=== PATIENT | female | born 1945 | race Caucasian/White ===

== ENCOUNTER 2020-06-14 14:15 | Emergency (ER) | payer MEDICARE, SELFPAY ==
--- NOTE | ~2020-06-14 | XR_ITS ---
EXAMINATION: XR shoulder RT min 2V, XR humerus RT DATE: 06/14/2020 16:55 INDICATION: Right shoulder pain post fall TECHNIQUE: 1. AP internally and externally rotated, AP oblique externally rotated and transscapular Y views of t he right shoulder were obtained. 2. Internal and external rotated views of the right humerus were obtained. COMPARISON: None FINDINGS: Comminuted fractures of the proximal right humerus. There is approximately 45 degree varus angulation at a transverse fracture at the surgical neck as well as 1.5 cm proximal migration of the metaphysea l fragment relative to the humeral head. There are additional mildly displaced fracture planes involv ing the articular surface of the humeral head as well as of the greater tuberosity. The humeral head fragments remain normally centered over the glenoid but with widening of the joint space consistent w ith the presence of a large glenoid and humeral joint effusion. The fracture plane at the articular c ortex isn't sufficiently profiled to assess for degree of fracture gap or incongruity. Normal alignme nt with mild to moderate osteoarthritis at the right acromioclavicular joint. No fracture of the righ t scapula, clavicle or more distal right humerus. Normal alignment and joint space at the right elbow . Visualized portions of the lungs are clear. Air-fluid level within a moderate to large hiatal herni a. IMPRESSION: 1. Comminuted intra-articular two-part fracture of the proximal right humerus with large glenohumeral joint effusion. 2. Moderate to large hiatal hernia. Reviewed, dictated and finalized at location A. WRAPPER IMPRESSION: 1. Comminuted intra-articular two-part fracture of the proximal right humerus w ith large glenohumeral joint effusion. 2. Moderate to large hiatal hernia.
[2020-06-14 15:56] VITALS: BP 147/95; PULSE 98; RESP 18; TEMP 36.4; O2SAT 97
[2020-06-14] MEDS: HYDROcodone/acetaminophen (*CRX) 5-325 MG TABLET 1 TAB PO (18:03)
--- NOTE | 2020-06-14 18:04 | ED.GENADULT ---
HPI - General Adult General Chief complaint: Extremity Injury, Upper <Kristopher Valenzuela PA-C - Last Filed: 06/14/20 18:10> Stated complaint: Fall, Right Arm pain <Kristopher Valenzuela PA-C - Last Filed: 06/14/20 18:10> Time Seen by Provider: 06/14/20 16:49 <Kristopher Valenzuela PA-C - Last Filed: 06/14/20 18:10> Source: patient <Kristopher Valenzuela PA-C - Last Filed: 06/14/20 18:10> Mode of arrival: ambulatory <Kristopher Valenzuela PA-C - Last Filed: 06/14/20 18:10> Limitations: no limitations <Kristopher Valenzuela PA-C - Last Filed: 06/14/20 18:10> History of Present Illness HPI narrative: Patient 75-year-old female who presents to emergency department with right shoulder injury patient was looking behind her when she lost her balance and fell onto the right shoulder is since had moderate aching pain at the shoulder joint worse with activity and movement patient denies head injury syncope loss of consciousness patient denies other injuries or concerns presents with her who she lives at home with and is resting comfortably on arrival in the room but does experience pain with any activity or movement patient has not taken anything for pain patient does not have an existing orthopedic surgeon who she follows with <Kristopher Valenzuela PA-C - Last Filed: 06/14/20 18:10> Related Data Allergies/adverse reactions: Allergies Allergy/AdvReac Type Severity Reaction Status Date / Time No Known Allergies Allergy Verified 06/14/20 16:57 <Kristopher Valenzuela PA-C - Last Filed: 06/14/20 18:10> Review of Systems Review of Systems: All systems reviewed & are unremarkable except as noted in HPI and below <Kristopher Valenzuela PA-C - Last Filed: 06/14/20 18:10> [facility] Surgical History Surgical History: Surgical History (Updated 06/14/20 @ 18:05 by Kristopher Valenzuela PA-C) History of orthopedic surgery <Kristopher Valenzuela PA-C - Last Filed: 06/14/20 18:10> Social History Social History: Social History (Updated 06/14/20 @ 18:06 by Kristopher Valenzuela PA-C) Smoking status: Never smoker <Kristopher Valenzuela PA-C - Last Filed: 06/14/20 18:10> Exam Narrative: Exam Narrative: GENERAL: Well-appearing, well-nourished, and in no acute distress. HEAD: Normocephalic, atraumatic. EYES: PERRLA and EOMI. ENT: Nares clear, no rhinorrhea or epistaxis. Mucous membranes moist. NECK: Supple. No adenopathy or masses. CHEST: Clear to auscultation. No respiratory distress. No wheezes rales or rhonchi HEART: Regular rate and rhythm. No murmur heard. Normal peripheral pulses. ABDOMEN: Soft, nontender, nondistended EXTREMITIES: Bruising swelling and tenderness of the right shoulder joint remainder of extremity nontender. No cervical spine tenderness to palpation SKIN: Warm, dry, no rash. NEURO: No focal deficits. Alert and oriented x3. Neurovascularly intact. Capillary refill less than 2 seconds PSYCH: Normal mood and affect. <OBDULIA Hernandez Last Filed: 06/14/20 18:10> Course Course Emergency Course: Discussed case with orthopedic surgery patient will follow with orthopedics in clinic placed in shoulder immobilizer will be discharged home with her patient and family feel comfortable with this plan. <OBDULIA Hernandez Last Filed: 06/14/20 18:10> Consultations Consultation #1: Discussed case with orthopedic surgery Dr. Calixto who will follow patient in clinic would like her to be placed in shoulder immobilizer <OBDULIA Hernandez Last Filed: 06/14/20 18:10> Date: 06/14/20 <OBDULIA Hernandez Last Filed: 06/14/20 18:10> Time: 18:07 <OBDULIA Hernandez Last Filed: 06/14/20 18:10> Vital Signs Vital signs: Vital Signs Temperature 97.5 F L 06/14/20 15:56 Pulse Rate 98 06/14/20 15:56 Respiratory Rate 18 06/14/20 15:56 Blood Pressure 147/95 H 06/14/20 15:56 Pulse Oximetry 97 06/14/20 15:56 Temperature 97.5 F L
== END 2020-06-14 19:05 | disposition home or self-care (01) ==
PROVIDERS: Emergency Provider General Practice
DX: S42.221A 2-part displaced fracture of surgical neck of right humerus, initial encounter for closed fracture (principal); K44.9 Diaphragmatic hernia without obstruction or gangrene; W18.39XA Other fall on same level, initial encounter
CPT/HCPCS: 73030; 73060; 99284; A9270

== ENCOUNTER 2024-07-04 14:32 | Emergency (ER) | payer MEDICARE, SELFPAY ==
[2024-07-04 14:55] VITALS: BP 126/72; PULSE 97; RESP 18; TEMP 36.3; O2SAT 98
--- OUTSIDE RECORDS SUMMARY | 2024-07-04 14:56 | XMS_ITS | Patient Health Record ---
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 [phone] ALLERGIES Allergen (clinical drug ingredient) Drug/Non Drug Allergy documented on EMR Reaction Allergy Type Onset Date Status [place] nausea Drug Allergy Active REASON FOR REFERRAL No Information MEDICATIONS Medication SIG (Take, Route, Frequency, Duration) Notes Start Date End Date Status Magnesium Active Sertraline HCl Activ e Fish Oil Active Pantoprazole Sodium Active Loperamide HCl Activ e Iron Active Glucosamine Chondr 1500 Complx Active Multivitamin Active Baby Aspirin Active Folic Acid Active buPROPion HCl ER (XL) 300 MG Oral for 90 Active Vitamin B 12 Active Levothyroxine Sodium 50 MCG Oral for 90 Active Vitamin D Active Rosuvastatin Calcium 10 MG Oral for 90 Active IMMUNIZATIONS Vaccine Route Administration Date Status Comme nts pneumoccocal Unknown 02/17/2015 Administered Influenza Unknown 03/15/2020 Administered Influenza Unknown 07/01/2021 Administered pneumoccocal Unknown 07/01/2021 Administered Influenza Unknown 09/17/2016 Refused pneumoccocal Unknown 06/15/2020 Refused SOCIAL HISTORY Tobacco Use: Social History Observation Description Date Details (start date - stop date) Never Smoker NA - NA Sex Assigned At : Social History Observation Description Sex Assigned At Unknown Tobacco Use: Question Answer Notes Patient is a: nonsmoker Alcohol screening: Question Answer Notes Did you have a drink containing alcohol in the p ast year? No Points 0 Interpretation Negative PROBLEMS Problem Type ICD Code Onset Dates Problem Status W/U Status Risk SNOMED Code Notes Problem Encounter for follow-up examination after completed treatment for conditions other than malignant neoplasm (Z09) Active confirmed History and physical examination, follow-up (906869096) Problem 4-part fracture of surgical neck of right humerus, initial encounter for closed fracture (S42.241A) Active confirmed 24428733 Problem Other displaced fracture of upper end of right humerus, initial encounter for closed fracture (S42.291A) Active confirmed 17917608 Problem Other fall on same level, initial encounter (W18.39XA) Active confirmed 42924685 Problem Unspecified fall, initial encounter (W19.XXXA) Active confirmed 7303390 Problem Activity, walking an animal (Y93.K1) Active confirmed 306730442 Problem Aftercare following joint replacement surgery (Z47.1) Active confirmed History of musculoskeletal operation (695063026) Problem 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) Active confirmed 461746799 Problem 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) Active confirmed Osteoarthritis of knee (176696720) Problem 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) Active confirmed Artificial k nee joint present (697270860440) Problem Encounter for removal of ed (Z48.02) Active confirmed [id number] PLAN OF TREATMENT No Information Insurance Providers Payer Name Payer Address Payer Phone Subscriber Number Group Number Insured Name Patient Relationship to Insured Coverage Start Date Coverage End Date [facility] Medicare Advantage HMO [address] [address] [place] [address] [id number] Steffany Car Self - patient is the insured MEDICAL (GENERAL) HISTORY Medical History History ICD Code thyroid disease depression hyperlipidemia Acid reflux HTN Bleeding problems Surgical History Surgery Date(Month/Year) gallbladder left knee replacement ([facility]) 03/18/16 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
--- OUTSIDE RECORDS SUMMARY | 2024-07-04 14:59 | XMS_ITS | Clinical Summary ---
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 Active buPROPion XL 24 hour (WELLBUTRIN-XL) 300 mg Oral tablet Take 300 mg by mouth daily leaf conditioner. Active MULTIVITAMIN ORAL Take by mouth daily. Active aspirin (ZOIE) 81 mg Oral Tab Take by mouth daily. Active ERGOCALCIFEROL, VITAMIN D2, (VITAMIN D ORAL) Take by mouth daily. Active FOLIC ACID ORAL Take by mouth daily. Active MAGNESIUM ORAL Take by mouth daily. Active LEVOTHYROXINE SODIUM (LEVOTHYROXINE ORAL) Take by mouth. 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 Gender Identity Not on file Sexual Orientation Not on file Last Filed Vital Signs Vital Sign Reading Time Taken Comments Blood Pressure 108/60 03/06/2017 7:41 AM CDT Pulse 73 03/06/2017 7:41 AM CDT Temperature 36.6 C (97.8 F) 03/06/2017 7:26 AM CDT Respiratory Rate 18 03/06/2017 7:41 AM CDT Oxygen Saturation 96% 03/06/2017 7:41 AM CDT Inhaled Oxygen Concentration - - Weight 70.3 kg (155 lb) 03/06/2017 6:40 AM CDT Height 149.9 cm (4' 11 ) 03/06/2017 6:40 AM CDT Body Mass Index 31.31 03/06/2017 6:40 AM CDT Plan of Treatment Health Maintenance Due Date Last Done Comments DTAP/TDAP/TD VACCINES (1 - Tdap) 1962 PNEUMOCOCCAL VACCINE 65+ YEA RS (1 of 1 - PCV) 1993 ZOSTER VACCINE (1 of 2) 1993 OSTEOPOROSIS SCREENING 2008 RSV VACCINE (60+ or ) (1 - 1-dose 75+ series) 2018 COLORECTAL SCREENING 03/06/2022 03/06/2017, 11/24/2011, 11/24/2011, Additional history exists INFLUENZA VACCINE (#1) 2023 Procedures Procedure Name Priority Date/Time Associated Diagnosis Comments ENDOSCOPY, COLON, SCREENING Routine 11/24/2011 from Last 3 Months or Most Recently Relevant to Health Maintenance Results * ENDOSCOPY, COLON, SCREENING (11/24/2011) Glynn Phillip MD GI PROCEDURE ORDERABLES Sharri montero Result [facility] from Last 3 Months or Most Recently Relevant to Health Maintenance Insurance MEDICARE PART A HOSPITAL ONLY [employer] HMO MCR [id number] [place] [id number] Advance Directives For more information, please contact: [phone] * Full Code (Latest Code Status on File) Date Activated Date Inactivated Comments 03/06/2017 6:42 AM 03/06/2017 10:27 AM Care Teams Boatbuilder Supervisor Relationship Specialty Start Date End Date Lacey Mcneil MD [address] [place] [address] PCP - General Internal Medicine 01/27/17
[2024-07-04] MEDS: ONDANSETRON HCL ODT 4 MG TABLET SUBLINGUAL (15:35)
--- NOTE | 2024-07-04 15:41 | ED.NAVMDI ---
HPI - Nausea/Vomiting/Diarrhea General Chief complaint: Nausea/Vomiting/Diarrhea Stated complaint: flu symptoms Time Seen by Provider: 07/04/24 15:41 Source: patient Mode of arrival: ambulatory Limitations: no limitations History of Present Illness HPI Narrative: 79-year-old female presents with complaint of nausea vomiting diarrhea, fatigue, body aches starting this morning. Has not taken any mefg-emz-xbutaci Imodium to treat diarrhea. Patient has swelled her pain and. Is walking around with a towel around her covering her but due to swell appearance. Has diarrhea down her legs and on her shoes. Patient is afebrile. Alert and oriented. Patient is here with her son. All systems reviewed and negative except as noted above. Related Data Allergies Allergy/AdvReac Type Severity Reaction Status Date / Time No Known Allergies Allergy Verified 07/04/24 15:21 Review of Systems Review of Systems: CONSTITUTIONAL: Denies fever, chills, or sweats. EYES: Denies visual changes, redness, or discharge. ENT: Denies rhinorrhea, congestion, sore throat, or otalgia. CARDIOVASCULAR: Denies chest pain, palpitations, or edema. RESPIRATORY: Denies cough or dyspnea. GASTROINTESTINAL: Denies abdominal pain . Reports nausea, vomiting, or diarrhea. GENITOURINARY: Denies dysuria or hematuria. SKIN: Denies rash or itching. MUSCULOSKELETAL: Denies back pain, joint pain, or myalgia. NEUROLOGIC: Denies headache, numbness, or weakness. PSYCHIATRIC: Denies anxiety or depression. All other systems reviewed are negative, except as documented in HPI. [facility] Surgical History Surgical History (Updated 06/14/20 @ 18:05 by Kristopher Valenzuela, PASandraC) History of orthopedic surgery Social History Social History (Updated 06/14/20 @ 18:06 by Kristopher Valenzuela, PA-C) Smoking status: Never smoker Comments At time of signature, agree with nursing past medical, surgical, social and family history. There is no relevant family history pertinent to the presenting complaint. Exam Narrative: GENERAL: This is a well-nourished, well-developed patient, in no apparent distress. HEAD: normocephalic, atraumatic. EYES: PERRL. Sclera clear/white. Vision is grossly intact. EARS: External ears normal NOSE: External nose normal NECK: Neck supple, non-tender without lymphadenopathy, masses or thyromegaly. CARDIOVASCULAR: Regular rate and rhythm without murmurs, gallops, or rubs. RESPIRATORY: Clear to auscultation. Breath sounds equal bilaterally. No wheezes, rales, or rhonchi. GASTROINTESTINAL: Abdomen soft, non-tender, nondistended. Bowel sounds are active. No hepato-splenomegaly, or palpable masses. No guarding. SKIN: warm, Dry, intact with no suspicious lesions or rash, good texture and turgor. NEURO: awake, alert, and oriented to person, place and time. There were no obvious focal neurologic abnormalities. EXTREMITIES: No joint tenderness, effusion, or edema noted. Course Course Level of Care: Express Care Visit Vital Signs Vital signs: Vital Signs Temperature 36.3 C L 07/04/24 14:55 Pulse Rate 97 07/04/24 14:55 Respiratory Rate 18 07/04/24 14:55 Blood Pressure 126/72 07/04/24 14:55 Pulse Oximetry 98 07/04/24 14:55 Oxygen Delivery Room Air 07/04/24 14:55 Temperature 36.3 C L 07/04/24 14:55 Pulse Rate 97 07/04/24 14:55 Respiratory Rate 18 07/04/24 14:55 Blood Pressure 126/72 07/04/24 14:55 Pulse Oximetry 98 07/04/24 14:55 Oxygen Delivery Room Air 07/04/24 14:55 reviewed MDM - Nausea/Vomiting/Diarrhea MDM Narrative Medical decision making narrative: negative influenza test. Patient given Zofran at [facility] and reports nausea is improving. No vomiting while at [facility]. Patient has had 2 episodes of diarrhea while here. Recommend she take mero-alf-eucgbcy Imodium which her son says they have at home they just have not started yet. Will go to the ER for any worsening of symptoms. Please be advised this is a medical document. It is intended for [id number] communication. It is written in medical language and may contain unfamiliar abbreviations or verbiage. Medical documents are intended to carry relevant information, facts as evident, and the clinical opinion of the practitioner at the time of the encounter. This report may have been done utilizing a voice recognition system. Attempts have been made to correct errors. However, there may be uncorrected grammatical, spelling, and recognition errors present. The file time of this note does not necessarily represent the time of service. Differential Diagnosis Differential diagnosis: Likely gastroenteritis Lab Data Labs: Lab Results 07/04/24 Range/Units 16:03 POC Influenza A Ag Negative (Negative) POC Influenza B Ag Negative (Negative) Discharge Plan Discharge Clinical Impression: Nausea, vomiting and diarrhea Patient Disposition: Home, Self-Care Condition: Stable Instructions: Gastroenteritis (ED), Acute Nausea and Vomiting (ED) Additional Instructions: start [id number] Imodium and take as directed on packaging. Take prescription Zofran every 8 hours as needed for nausea vomiting. Drink at least 64 oz of water a day. Follow-up with your doctor if diarrhea is not improving. If you have severe abdominal pain or concern for dehydration go to the ER. Patient Language: Lithuanian Prescriptions: New ondansetron 4 mg tablet,disintegrating 4 mg PO Q8H PRN (Reason: nausea and vomiting) Qty: 12 0RF No Action hydrocodone-acetaminophen [[place]] 5-325 mg tablet 1 tablet PO Q6H PRN (Reason: pain) Qty: 14 0RF ondansetron 4 mg tablet,disintegrating 4 mg PO Q6H PRN (Reason: nausea and vomiting) Qty: 7 0RF Follow-up/Referrals: UNKNOWN,DOCTOR [Primary Care Provider] - Time of Disposition: 16:04
[2024-07-04 16:04] LABS: EDINFLUASCREEN Negative (Negative); EDINFLUBSCREEN Negative (Negative)
== END 2024-07-04 16:10 | disposition home or self-care (01) ==
PROVIDERS: Emergency Provider Nurse Practitioner Family
DX: R11.2 Nausea with vomiting, unspecified (principal); R19.7 Diarrhea, unspecified
CPT/HCPCS: 87804; 99213; A9270; G0463